=== PATIENT | male | born 1945 | race Caucasian/White ===

== ENCOUNTER 2021-06-09 05:20 | Observation (INO) | payer MEDICARE, OTHER ==
[2021-06-07 11:23] LABS: BASOPHILS % 0.7 % (0.0-1.0); EOSINOPHILS # (AUTO) 0.6 (0.0-0.4); EOSINOPHILS % 10.5 % (0.0-6.0); HEMATOCRIT 41.4 % (38.2-49.6); HEMOGLOBIN 13.2 g/dL (14.0-18.0); LYMPHOCYTES # (AUTO) 2.3 (1.0-3.2); LYMPHOCYTES % 39.5 % (18.0-39.1); MEAN CORPUSCULAR HEMOGLOBIN 28.6 pg (28-32); MEAN CORPUSCULAR HGB CONC 31.9 g/dL (31-35); MEAN CORPUSCULAR VOLUME 89.8 fL (81-99); MONOCYTES # (AUTO) 0.6 (0.2-0.8); MONOCYTES % 10.8 % (4.4-11.3); NEUTROPHILS # (AUTO) 2.2 (2.1-6.9); NEUTROPHILS % 38.3 % (38.7-80.0); PLATELET COUNT 130 x10e3/uL (140-360); RED BLOOD COUNT 4.61 x10e6/uL (4.3-5.7); RED CELL DISTRIBUTION WIDTH 12.6 % (11.7-14.4)
[2021-06-07 11:30] LABS: INR 0.88; PROTHROMBIN TIME 12.7 seconds (11.9-14.5)
[2021-06-07 11:31] LABS: PARTIAL THROMBOPLASTIN TIME 28.1 seconds (23.8-35.5)
[2021-06-07 11:39] LABS: ANION GAP 15.1 mmol/L (8-16); CALCIUM 9.5 mg/dL (8.4-10.2); CREATININE, SERUM 1.59 mg/dL (0.72-1.25); POTASSIUM 5.1 mmol/L (3.5-5.1)
[~2021-06-09] VITALS: Ht 182.9 cm; Wt 96.6 kg
[~2021-06-09 05:20] MED LIST: AMLODIPINE BESY10 MG PO; ASPIRIN81 MG PO; GABAPENTIN400 MG PO; LEVEMIR FL100 UNIT/1 SC; LISINOPRIL-HCT1 EACH PO; METFORMIN HCL500 MG PO; METOPROLOL TART25 MG PO; ONE DAILY COMP1 EACH PO; PRAVASTATIN SOD40 MG PO; VITAMIN D3 PO
[2021-06-09] MEDS ORDERED: SODIUM CHLORIDE 0.9% 50ML 100 ML ONE (05:47)
[2021-06-09] MEDS ORDERED: LIDOCAINE 1% W/EPINEPHRINE 20 ML VIAL ONE (06:34)
[2021-06-09] MEDS ORDERED: Vancomycin IV 1 GM VIAL ONE (06:35)
[2021-06-09] MEDS ORDERED: THROMBIN FOR SOLN 5,000 UNIT VIAL ONE (06:35)
[2021-06-09] MEDS ORDERED: FENTANYL CITRATE/PF 100MCG/2 ML INJ ONE (08:22)
[2021-06-09] MEDS ORDERED: PROMETHAZINE HCL (IM) 25 MG/ML VIAL IM PRN (09:30)
[2021-06-09] MEDS ORDERED: CEPACOL SORE THROAT LOZENGES PO PRN (09:30)
[2021-06-09] MEDS ORDERED: MAGNESIUM/ALUMINUM/SIMETHICONE 30 ML UDC PO PRN (09:30)
[2021-06-09] MEDS ORDERED: Morphine 4mg Syringe 4 MG/ML INJ IM PRN (09:30)
[2021-06-09] MEDS ORDERED: HYDROMORPHONE 2MG/ML 2 MG/ML ML IV PRN (09:30)
[2021-06-09] MEDS ORDERED: OXYCODONE/ACETAMINOPHEN 5-325 1 EACH TABLET PO PRN (09:30)
[2021-06-09] MEDS ORDERED: ONDANSETRON HCL INJ 2MG/ML 2ML 2 MG/ML VIAL IV PRN (09:30)
[2021-06-09] MEDS ORDERED: CARISOPRODOL 350 MG TAB PO PRN (09:30)
[2021-06-09] MEDS ORDERED: ACETAMINOPHEN 325 MG TAB PO PRN (09:30)
[2021-06-09] MEDS ORDERED: ZOLPIDEM TARTRATE 5 MG TAB PO PRN (09:30)
[2021-06-09] MEDS ORDERED: HYDROCODON-ACE1 EA12 PO (09:31)
[2021-06-09 13:15] VITALS: BP 145/63
[2021-06-09 13:24] VITALS: BP 145/63
[2021-06-09] MEDS: LACTATED RINGER'S 1,000 ML IV SCH ×2 (13:37→21:50)
[2021-06-09] MEDS ORDERED: ROCURONIUM BROMIDE 10 MG/ML 5ML VIAL IV ONE (13:54)
[2021-06-09] MEDS ORDERED: SEVOFLURANE INHAL SOLN 250 ML PEN BTL ONE (13:54)
[2021-06-09] MEDS ORDERED: GLYCOPYRROLATE INJ 0.2 MG/ML VIAL ONE (13:54)
[2021-06-09] MEDS ORDERED: DEXAMETHASONE SOD PHOS INJ 4 MG/ML SDV ONE (13:54)
[2021-06-09] MEDS ORDERED: EPHEDRINE SULFATE INJ 50 MG/ML VIAL ONE (13:54)
[2021-06-09] MEDS ORDERED: ATROPINE SULFATE 1 MG/ML VIAL ONE (13:54)
[2021-06-09] MEDS ORDERED: LIDOCAINE HCL 2% LOCAL INJ 5 ML SDV VIAL INJ ONE (13:54)
[2021-06-09] MEDS ORDERED: ONDANSETRON HCL INJ 2MG/ML 2ML 2 MG/ML VIAL ONE (13:54)
[2021-06-09] MEDS ORDERED: PHENYLEPHRINE HCL 1% 10 MG/ML VIAL ONE (13:54)
[2021-06-09] MEDS ORDERED: VASOPRESSIN INJ 20 UNIT/ML VIAL ONE (13:54)
[2021-06-09] MEDS ORDERED: PROPOFOL IV EMULSION 10 MG/ML 20 ML VIAL ONE (13:54)
[2021-06-09] MEDS ORDERED: POVIDONE IODINE 0.05% 0.05 % ML PO ONE (13:54)
[2021-06-09 16:07] VITALS: BP 130/57
[2021-06-09] MEDS: GABAPENTIN 400 MG CAP PO SCH (16:40)
[2021-06-09] MEDS: Cefazolin 1 GM in SODIUM CHLORIDE 0.9% 50ML 50 ML IV SCH (16:40)
[2021-06-09 20:00] VITALS: BP 132/65
[2021-06-09 20:45] VITALS: BP 132/65
[2021-06-09] MEDS ORDERED: METFORMIN HCL 500 MG TAB PO SCH (21:00)
[2021-06-09] MEDS ORDERED: PRAVASTATIN 20 MG TAB PO SCH (21:00)
[2021-06-09] MEDS ORDERED: AMLODIPINE BESYLATE 10 MG TAB PO SCH (21:00)
[2021-06-10] VITALS: BP 106/54
[2021-06-10] MEDS: Cefazolin 1 GM in SODIUM CHLORIDE 0.9% 50ML 50 ML IV SCH ×2 (00:20→08:26)
[2021-06-10] MEDS ORDERED: SODIUM CHLORIDE 0.9% 1000ML 0 ML ONE (00:22)
[2021-06-10] MEDS ORDERED: SODIUM CHLORIDE 0.9% 250ML 250 ML ONE (00:23)
[2021-06-10 04:00] VITALS: BP 99/43
[2021-06-10] MEDS: LACTATED RINGER'S 1,000 ML IV SCH (06:10)
[2021-06-10 07:54] VITALS: BP 132/67
[2021-06-10 08:03] VITALS: BP 132/67
[2021-06-10] MEDS: GABAPENTIN 400 MG CAP PO SCH (08:26)
[2021-06-10] MEDS ORDERED: MULTIVITAMINS/MINERALS TAB PO SCH (09:00)
[2021-06-10] MEDS ORDERED: HYDROCHLOROTHIAZIDE 25 MG TAB PO SCH (09:00)
[2021-06-10] MEDS ORDERED: METOPROLOL TARTRATE 25 MG TAB PO SCH (09:00)
[2021-06-10] MEDS ORDERED: INSULIN GLARGINE 100 UNITS/ML VIAL SC SCH (09:00)
[2021-06-10] MEDS ORDERED: LISINOPRIL 20 MG TAB PO SCH (09:00)
[2021-06-10] MEDS ORDERED: CHOLECALCIFEROL 1,000 UNIT TAB PO SCH (09:00)
[2021-06-10] MEDS ORDERED: ASPIRIN 81 MG CHEW TAB PO SCH (09:00)
== END 2021-06-10 10:20 | disposition home or self-care (01) ==
LOC: OR 05:20 → PACU V 09:28 → MED/SURG 12:41
PROVIDERS: ADMIT Neurological Surgery; ATTEND Neurological Surgery
DX: M50.022 Cervical disc disorder at C5-C6 level with myelopathy (principal); E11.42 Type 2 diabetes mellitus with diabetic polyneuropathy; M19.90 Unspecified osteoarthritis, unspecified site; I10 Essential (primary) hypertension; Z91.81 History of falling; Z01.810 Encounter for preprocedural cardiovascular examination; Z01.812 Encounter for preprocedural laboratory examination; Z01.818 Encounter for other preprocedural examination; Z20.822 Contact with and (suspected) exposure to COVID-19
CPT/HCPCS: 20931; 22551; 22845; 36415 ×2; 71046; 72040; 77003; 80048; 82948; 85025; 85610; 85730; 86850; 86900; 88304; 88311; 93005; C1713 ×2; G0378 ×2; J0461; J0690 ×2; J1100; J2001; J2270; J2370; J2405; J2704; J3010; J3370; J7050; U0002; J7030

== ENCOUNTER → 2021-07-06 | Outpatient (CLI) | payer MEDICARE ==
[~2021-07-06] MED LIST changes: +HYDROCODON-ACE1 EA12 PO
== END ==
LOC: RAD 12:18
PROVIDERS: ATTEND Neurological Surgery
DX: M50.20 Other cervical disc displacement, unspecified cervical region (principal); M43.22 Fusion of spine, cervical region
CPT/HCPCS: 72050